=== PATIENT | female | born 1965 | race African-American/Black ===

== ENCOUNTER 2019-12-26 17:21 | Emergency (ER) | payer MEDICAID ==
[~2019-12-26] VITALS: Ht 180.3 cm; Wt 91.0 kg
[2019-12-26 17:22] VITALS: BP 195/110
[2019-12-26] MEDS ORDERED: ACETAMINOPHEN WITH CODEINE 300/30MG TABLET PO ONE (18:15)
== END 2019-12-26 19:19 | disposition home or self-care (01) ==
LOC: ER 17:21
DX: S69.80XA Other specified injuries of unspecified wrist, hand and finger(s), initial encounter (principal); M54.2 Cervicalgia; M54.9 Dorsalgia, unspecified; I10 Essential (primary) hypertension; V43.52XA Car driver injured in collision with other type car in traffic accident, initial encounter; Y93.89 Activity, other specified; Y92.410 Unspecified street and highway as the place of occurrence of the external cause
CPT/HCPCS: 72040; 72070; 73130; 99284

== ENCOUNTER 2022-09-29 14:39 | Emergency (ER) | payer MEDICAID ==
[~2022-09-29] VITALS: Ht 172.7 cm; Wt 94.0 kg
[2022-09-29 15:10] VITALS: O2SAT 98
[2022-09-29 16:27] LABS: BASOPHILS % 0.8 % (0.0-2.0); HEMATOCRIT. 38.5 % (36.0-48.0); HEMOGLOBIN. 12.8 g/dL (12.0-16.0); LYMPHOCYTES % 41.7 % (20.0-50.0); MEAN CORPUSCULAR HEMOGLOBIN 30.4 pg (28.0-32.0); MEAN CORPUSCULAR HGB CONC 33.2 g/dL (31.0-37.0); MEAN CORPUSCULAR VOLUME 91.5 fL (81.0-99.0); MEAN PLATELET VOLUME 9.3 fl (7.4-10.4); MONOCYTES % 7.7 % (2.0-8.0); NEUTROPHILS % 48.8 % (40.0-76.0); PLATELET 253 x1000/uL (130-400); RED BLOOD CELL COUNT 4.21 mill/uL (4.2-5.4); RED CELL DISTRIBUTION WIDTH 15.2 % (11.6-14.6); WHITE BLOOD COUNT 5.7 x1000/uL (4.5-11.0)
[2022-09-29 16:35] LABS: CHLORIDE 105 mEq/L (98-107); INDEX HEMOLYSI 1 (1-3); INDEX ICTERIC 1 (1-4); INDEX LIPEMIC 1 (1-3); POTASSIUM 3.8 mEq/L (3.5-5.1); SODIUM 139 mEq/L (136-145)
[2022-09-29 16:45] LABS: ALANINE AMINOTRANSFERASE 27 IU/L (13-61); ALBUMIN 3.7 g/dL (3.4-5.0); ASPARTATE AMINOTRANSFERASE 13 IU/L (15-37); BILIRUBIN TOTAL 0.5 mg/dL (0.1-1.0); CALCIUM 9.3 mg/dL (8.5-10.1); CARBON DIOXIDE 34 mEq/L (21-32); CREATININE 0.8 mg/dL (0.6-1.3); GLUCOSE 81 mg/dL (70-105); PROTEIN TOTAL 7.9 g/dL (6.0-8.3); TROPONIN I HIGH SENSITIVITY 8 ng/L (<54); UREA NITROGEN BLOOD 14 mg/dL (7-21)
[2022-09-29] MEDS ORDERED: CETI10CA11 MT (16:56)
[2022-09-29] MEDS ORDERED: NAPR275T96 MT (16:56)
[2022-09-29 18:07] VITALS: BP 123/56; PULSE 67; RESP 19; TEMP 97.3
== END 2022-09-29 18:10 | disposition home or self-care (01) ==
LOC: ER 14:39
DX: R07.89 Other chest pain (principal); R05.9 Cough, unspecified; R09.81 Nasal congestion; I10 Essential (primary) hypertension
CPT/HCPCS: 36415; 71045; 80053; 84484; 85025; 93005; 99285